=== PATIENT | male | born 1955 | race Caucasian/White ===

== ENCOUNTER → 2020-03-26 08:31 | Outpatient (CLI) | payer OTHER, SELFPAY ==
[2020-03-26 09:36] LABS: Add Manual Diff / Slide Review NO; Basophils Absolute Auto 100 /uL (0-100); Basophils Percent Auto 1.1 % (0-2); Eosinophils Absolute Auto 300 /uL (0-450); Eosinophils Percent Auto 3.9 % (2-4); Hemoglobin 14.6 g/dL (13.5-17.5); Lymphocytes Absolute Auto 2000 /uL (1100-4500); Lymphocytes Percent Auto 30.5 % (25-40); Mean Corpuscular HGB Conc 35.5 % (30-36); Mean Corpuscular Hemoglobin 31.4 PG (26-34); Mean Corpuscular Volume 88.4 fL (80-100); Monocytes Absolute Auto 600 /uL (0-900); Monocytes Percent Auto 9.1 % (3-14); Neutrophils Absolute Auto 3600 /uL (1500-7000); Neutrophils Percent Auto 55.4 % (50-75); Platelet Count 276 X10^3/uL (150-400); Red Blood Cell Count 4.64 X10^6/uL (4.5-5.9); Red Cell Distribution Width 13.1 % (11.6-14.8); White Blood Cell Count 6.6 X10^3/uL (4.5-11.0)
[2020-03-26 10:12] LABS: Alanine Aminotransferase 22 IU/L (<50); Albumin 4.2 g/dL (3.5-5.0); Albumin Globulin Ratio 1.7 (1.0-2.8); Alkaline Phosphatase 43 U/L (38-126); Aspartate Aminotransferase 30 IU/L (17-59); BUN Creatinine Ratio 17.7 (6-22); Blood Urea Nitrogen 14 mg/dL (9-20); Calcium 9.4 mg/dL (8.4-10.2); Carbon Dioxide 28 mmol/L (22-32); Chloride 101 mmol/L (98-107); Cholesterol 160 mg/dL (140-199); Estimated Glomerular Filt Rate > 60.0 mL/min (>60); Globulin 2.5 g/dL (1.7-4.1); Glucose 103 mg/dL (80-110); HDL Cholesterol 61 mg/dL (40-60); HEMOLYSIS < 15 (0-50); LDL Cholesterol Calculated 76 mg/dL (<100); Potassium 4.2 mmol/L (3.4-5.1); Sodium 134 mmol/L (137-145); Total Protein 6.7 g/dL (6.3-8.2); Triglycerides 115 mg/dL (35-150)
[2020-03-26 10:36] LABS: TSH w/ Reflex to FT4 1.09 uIU/mL (0.47-4.68)
== END ==
PROVIDERS: PCP Physician Assistant; Referring Provider Physician Assistant; Visit Provider Physician Assistant
DX: R00.2 Palpitations (principal); I25.10 Atherosclerotic heart disease of native coronary artery without angina pectoris
CPT/HCPCS: 36415; 80053; 80061; 84443; 85025

== ENCOUNTER 2022-04-15 08:44 | Emergency (ER) | payer MEDICARE, OTHER, SELFPAY ==
[2022-04-15 08:52] VITALS: BP 166/102; PULSE 71; RESP 16; TEMP 36.2; O2SAT 99; BMI 28.1
--- NOTE | 2022-04-15 08:55 | ED_ITS ---
HPI - Extremity Injury (Lower) General Chief Complaint: Extremity Injury, Lower Stated Complaint: lt knee pain unable to bare weight Time Seen by Provider: 04/15/22 08:48 Source: patient Mode of arrival: Ambulatory Limitations: no limitations History of Present Illness HPI Narrative: This is a 66-year-old male with history of sciatica, hypertension and psoriatic arthritis Stelara. Patient states that yesterday he was walking down the stairs had a twisting motion and had immediate pain on the medial portion of his left knee. He states it is painful to weightbear or fully extend. He is able to walk on it but comfortably so. He denies fevers or chills. No chest pain, shortness of breath, no nausea or vomiting, no GI or urinary symptoms. Patient has not appreciate any swelling, erythema or ecchymosis. No other skin changes. He did not feel a pop, snap or other change. Patient denies any bony changes. He does have some chronic sciatica changes on the left side which have been flared up a little bit since yesterday. Patient states he occasionally gets numbness and tingling down his leg but has not had a change in his normal pattern. Denies any weakness. Patient has taken ibuprofen 400 mg with some help. Has his home pain medications he states that he can take. He states Tylenol makes him itchy. Patient has a Velcro knee brace which he purchased which has been helpful for his discomfort. Related Data Allergies Allergy/AdvReac Type Severity Reaction Status Date / Time acetaminophen [From TYLENOL] Allergy Intermediate Verified 04/15/22 08:56 Review of Systems Review of Systems ROS Unobtainable: All systems reviewed & are unremarkable except as noted in HPI and below Patient History Social History Smoking Status: Never smoker Exam Narrative Exam Narrative: GENERAL: Alert and oriented x three, mild distress. HEENT: Head normocephalic, atraumatic, EOMI, pupils reactive, face symmetric, moist mucous membranes NECK: Supple, full range of motion CARDIOVASCULAR: Regular rate and rhythm without murmurs, rubs or gallops. RESPIRATORY: Breath sounds equal bilaterally, no wheezes rales or rhonchi. ABDOMEN: Soft, nontender. Normoactive bowel sounds all 4 quadrants. No guarding or rebound, rigidity, no mass : No CVA tenderness EXTREMITIES: Normal range of motion, no clubbing or edema. Neurovascularly intact. Patient does not have reproducible pain on exam. No bony tenderness of the left lower extremity. No erythema, no swelling, no ecchymosis or skin changes noted. No warmth to the skin. No lacerations, cuts or other changes. Patient has mild discomfort with compression test, negative joint laxity testing. Patient is little bit more discomfort with anterior drawer but not present with posterior drawer and valgus and varus testing do not exacerbate patient's symptoms. Patient has antalgic gait with the left lower extremity but is able to ambulate unassisted. 2+ tibialis. Normal sensation throughout the leg to light touch. NEUROLOGICAL: Cranial nerves II through XII grossly intact. Moving all extremities. SKIN: Warm, dry, no petechiae, no rashes or lesions. Initial Vital Signs Initial Vital Signs: Vital Signs Temperature 97.2 F L 04/15/22 08:52 Pulse Rate 71 04/15/22 08:52 Respiratory Rate 16 04/15/22 08:52 Blood Pressure 166/102 H 04/15/22 08:52 Pulse Oximetry 99 04/15/22 08:52 Oxygen Delivery Method 04/15/22 08:52 Course Orders Ordered: ED Orders 04/15/22 09:01 XR knee LT 3V Stat Vital Signs Vital signs: Vital Signs - 8 hr 04/15/22 08:52 04/15/22 10:00 Temperature 97.2 F L Pulse Rate 71 77 Respiratory Rate 16 16 Blood Pressure 166/102 H 146/78 H Pulse Oximetry 99 97 Oxygen Delivery Method Room Air Room Air MDM - Extremity Injury (Lower) Imaging Data Extremity x-ray #1: Radiologist's Impression: [address] [address] XRay Report Signed Patient: Abdulkadir Zafar MR#: [id number] : 1955 Acct:[id number] Age/Sex: 66 / M Date of Service: 04/15/22 Loc: ED Accession Number: [id number] ?? Procedure: XR knee LT 3V Ordering Provider: Audrey Palomino D.O. PROCEDURE:? XR KNEE LT 3V ? INDICATIONS:? left knee pain, twisting motion on stairs started yesterday ? TECHNIQUE:? 3 views of the knee were acquired.? ? COMPARISON:? None. ? FINDINGS:? ? Bones:? No fractures or dislocations.? No suspicious bony lesions.? Mild osteoarthritic changes with early marginal osteophytes most prominent patellofemoral compartment.? Patellar enthesophytes. ? Soft tissues:? No joint effusion.? No suspicious soft tissue calcifications.? ? ? IMPRESSION:? No acute osseous abnormality. ? ? Dictated by: Donald Escoto M.D. on 04/15/2022 at 8:28 ? ? Approved by: Donald Escoto M.D. on 04/15/2022 at 8:29?? MDM Narrative Medical decision making narrative: This is a 66-year-old male with twisting motion while going down stairs without fall. Patient does not have any reproducible pain. Patient imaging is reassuring, plan for outpatient follow-up, patient has brace on leg and defers crutches. He has his own pain medications available. Discharge Plan Departure Patient Disposition: Home Clinical Impression: Left knee sprain Instructions: DI for Knee Sprain Activity Restrictions/Additional Instructions: Follow-up with orthopedic surgery the next 7-10 days for recheck if your symptoms are not improving. Referral is included below if you do not have a primary care or orthopedic surgeon to follow up with, please call for an appointment. You can take ibuprofen up to 600 mg every 6 hours as needed pain. Splint Care: Keep splint clean and dry. Elevated affected body part to decrease swelling. OK to use ice pack on the affected body part. Use for 15-20 minutes each time, for 5-6x per day. If you develop worsening pain, numbness, tingling, discoloration of the affected body part, loosen the splint by loosening the RAMIRO wrap, and either see your doctor for an urgent re-assessment, or return to the Emergency Department. Return to the Emergency Department for any new or worsening symptoms. Referrals: Ana Rosa Philip MD [Physician] - Ra Lemus PA-C [Primary Care Provider] - Visit Report Forms: Patient Portal/API
--- NOTE | 2022-04-15 09:01 | DI.RAD.S_ITS ---
PROCEDURE: XR KNEE LT 3V INDICATIONS: left knee pain, twisting motion on stairs started yesterday TECHNIQUE: 3 views of the knee were acquired. COMPARISON: None. FINDINGS: Bones: No fractures or dislocations. No suspicious bony lesions. Mild osteoarthritic changes with early marginal osteophytes most prominent patellofemoral compartment. Patellar enthesophytes. Soft tissues: No joint effusion. No suspicious soft tissue calcifications. IMPRESSION: No acute osseous abnormality. Dictated by: Donald Escoto M.D. on 04/15/2022 at 8:28 Approved by: Donald Escoto M.D. on 04/15/2022 at 8:29
[2022-04-15 10:00] VITALS: BP 146/78; PULSE 77; RESP 16; O2SAT 97
== END 2022-04-15 10:01 | disposition home or self-care (01) ==
PROVIDERS: Emergency Provider Emergency Medicine; PCP Physician Assistant
DX: S83.92XA Sprain of unspecified site of left knee, initial encounter (principal); X50.1XXA Overexertion from prolonged static or awkward postures, initial encounter
CPT/HCPCS: 73562; 99281; 99283